=== PATIENT | male | born 1950 | race Caucasian/White ===

== ENCOUNTER 2016-10-28 11:03 | Day surgery (SDC) | payer MEDICARE, OTHER ==
[~2016-10-28] VITALS: Ht 175.3 cm; Wt 86.0 kg
[~2016-10-28 11:03] MED LIST: 0.9% Sodium Chloride 1,000 ML IV SCH; LISI-567 PO; Sodium Chloride LOK Flush 10 mL Syringe IV PRN; fentaNYL-PF 50 mCg/mL 2 mL Inj IVPUSH PRN
[2016-10-28] MEDS ORDERED: ASPI-973 PO (11:44)
[2016-10-28 11:46] VITALS: BP 173/91; PULSE 60; RESP 14; O2SAT 96
[2016-10-28 13:28] VITALS: BP 147/69; PULSE 56; RESP 15; O2SAT 95
[2016-10-28 13:38] VITALS: BP 150/74; PULSE 54; RESP 15; O2SAT 95
[2016-10-28 13:48] VITALS: BP 149/73; PULSE 51; RESP 15; O2SAT 95
[2016-10-28 13:58] VITALS: BP 122/80; PULSE 65; RESP 15; O2SAT 95
--- NOTE | 2016-10-28 18:38 | ENDO ---
[address] [address] ENDOSCOPY PROCEDURE PATIENT: AZRA SMITH : 1950 MR#: [id number] ADMIT: 10/28/2016 JOB ID: [id number] DATE: 10/28/2016 PROCEDURE: Colonoscopy. INDICATION: Screening. Patient's ASA classification is two. Mallampati score is two. MEDICATIONS: Versed 5 mg, Fentanyl 125 mcg. INSTRUMENT USED: PCF H 180 AL PREPARATION QUALITY: Fair. PROCEDURE DETAILS: After informed consent was obtained, the patient was brought into the GI suite, where he was placed on oxygen via nasal cannula and monitored with continuous pulse oximeter, telemetry, and blood pressure monitoring. A time-out was performed, then he was placed in the left lateral decubitus position and medications were administered for sedation. Digital rectal exam was performed, which was unremarkable. The colonoscope was then inserted into the rectum and advanced under direct visualization to the cecum, which was identified by the presence of the ileocecal valve and appendiceal orifice. Once the cecum was reached, the colonoscope was then withdrawn back into the rectum as the mucosa and lumen were examined. In the rectum, retroflexion was performed. Following retroflexion, the remaining air in the rectum was suctioned and the procedure was completed. FINDINGS: 1. In the ascending colon, there was a diminutive polyp that was removed with cold biopsy forceps. 2. In the transverse colon, there was a diminutive polyp that was removed with cold biopsy forceps. 3. In the proximal rectum, there was a diminutive polyp that was removed with cold biopsy forceps. 4. Scattered diverticula were seen in the left side of the colon. IMPRESSION: 1. Ascending colon polyp. 2. Transverse colon polyp. 3. Rectal polyp. 4. Left-sided diverticulosis. RECOMMENDATIONS: 1. Fiber rich diet. 2. Repeat colonoscopy pending polyp pathology results. COMPLICATIONS: None. ESTIMATED BLOOD LOSS: Less than 5 mL.
--- NOTE | 2016-10-31 16:05 | PATH ---
SURGICAL PATHOLOGY Attending Physician:Leidy Amanda CASE STATUS: Signed Out PATIENT NAME: AZRA SMITH PID: [id number] : 1950 DATE COLLECTED:10/28/2016 00:00 SPECIMEN: 1: Colon, Polyp 2: Colon, Polyp 3: Rectum, Biopsy CLINICAL HISTORY: 1). ASCENDING COLON POLYP X1 2). TRANSVERSE COLON POLYP X1 3). RECTAL POLYP X1 FINAL DIAGNOSIS: 1. Ascending Colon, Polyp, Biopsy: Tubular adenoma; negative for high-grade dysplasia. 2. Transverse Colon, Polyp, Biopsy: Tubular adenoma; negative for high-grade dysplasia. 3. Rectum, Polyp, Biopsy: Hyperplastic polyp. ICD10: K63.5 GROSS DESCRIPTION: The specimens are received in formalin, labeled with the patient's name, and sublabeled as the following: (1) ascending colon polyp; (2) transverse colon polyp; (3) rectal polyp. (1) The specimen consists of a fragment of bunhc glistening semitranslucent rubbery tissue (0.5 x 0.2 x 0.1 cm). Section code: (1A) tissue. Specimen entirely submitted. (2) The specimen consists of a fragment of bunch glistening semitranslucent rubbery tissue (0.4 x 0.3 x 0.1 cm). Section code: (2A) tissue. Specimen entirely submitted. (3) The specimen consists of a fragment of bunch glistening semitranslucent rubbery tissue (0.3 x 0.2 x 0.1 cm). Section code: (3A) tissue. Specimen entirely submitted. 10/29/16 ICD-9 CODES: CPT CODES: 1: 36371 2: 00558 3: 78730 Electronically Signed Out Mayra Angeles MD [facility], [place] [address] Technical component performed at [facility], [facility] [address], [place], [address]
== END 2016-10-28 23:59 | disposition home or self-care (01) ==
LOC: END 11:03
PROVIDERS: ATTEND Internal Medicine Gastroenterology
DX: Z12.11 Encounter for screening for malignant neoplasm of colon (principal); D12.2 Benign neoplasm of ascending colon; D12.3 Benign neoplasm of transverse colon; K62.1 Rectal polyp; I10 Essential (primary) hypertension; G14 Postpolio syndrome; Z87.891 Personal history of nicotine dependence; K57.30 Diverticulosis of large intestine without perforation or abscess without bleeding